=== PATIENT | female | born 1970 | race Caucasian/White ===

== ENCOUNTER 2016-12-20 16:16 | Emergency (ER) | payer OTHER ==
[2016-12-20 17:52] VITALS: BP 147/82
--- NOTE | 2016-12-20 18:46 | UC ---
Skin Complaint HPI - HPI Summary HPI Summary: 46 year old female with tick bite. It was on 2 days ago. Left leg for about 6 hours or so when she noticed at home and removed it immediately. Patient today develop congestion, cough, runny nose . No fever, myalgias or chills. No rash or bulls eye lesion - History of Current Complaint Chief Complaint: UCSkin Time Seen by Provider: 12/20/16 17:56 Stated Complaint: TICK BITE Hx Obtained From: Patient Hx Last Menstrual Period: 3 WKS AGO Aggravating Factor(s): Nothing Alleviating Factor(s): Nothing - Allergy/Home Medications Allergies/Adverse Reactions: Allergies Allergy/AdvReac Type Severity Reaction Status Date / Time No Known Allergies Allergy Verified 12/20/16 17:52 Home Medications: Home Medications Cyanocobalamin [B-12] 1,000 mcg PO DAILY 12/20/16 [History Confirmed 12/20/16] [id number] [Tylenol Sinus Severe 5-325-200 mg] 2 tab PO DAILY PRN 12/20/16 [History Confirmed 12/20/16] Venlafaxine TAB (NF) [Effexor TAB (NF)] 25 mg PO BID 12/20/16 [History Confirmed 12/20/16] Review of Systems Skin: Other - tick bite Is Patient Immunocompromised?: No All Other Systems Reviewed And Are Negative: Yes PMH/Surg Hx/FS Hx/Imm Hx Previously Healthy: Yes - Surgical History Surgical History: Yes Surgery Procedure, Year, and Place: R arm, esure procedure, . LEFT ARM FX REPAIR - Family History Known Family History: Positive: None - Social History Occupation: Employed Full-time Lives: With Family Alcohol Use: Rare Substance Use Type: None Smoking Status (MU): Never Smoked Tobacco Physical Exam Triage Information Reviewed: Yes Appearance: Well-Appearing, No Pain Distress, Well-Nourished Vital Signs: Initial Vital Signs Temp 98.4 F 12/20/16 17:46 Pulse 63 12/20/16 17:46 Resp 18 12/20/16 17:46 BP 147/82 12/20/16 17:46 Pulse Ox 100 12/20/16 17:46 Vital Signs Reviewed: Yes Eye Exam: Normal ENT Exam: Normal Neck exam: Normal Neck: Positive: 1 Respiratory Exam: Normal Cardiovascular Exam: Normal Musculoskeletal Exam: Normal Neurological Exam: Normal Psychological Exam: Normal Skin Exam: Normal Skin: Positive: Other - left medial aspect of the knee proximal aspect with small round red irritation. no bruising. 2x2 mm. no discharge. no EM. No streaking. Course/Dx - Course Course Of Treatment: URI concurrent with recent tick bite. tick only on for about 6 hours. now with URI == no EM, no fever, no concern for lyme, with exposure will treat at this time - Diagnoses Provider Diagnoses: tick bite Discharge - Discharge Plan Condition: Good Disposition: HOME Prescriptions: Doxycycline Hyclate [[id number] [id number]] 100 mg PO ONCE #2 cap Patient Education Materials: Tick Bite (ED) Referrals: Rima Duarte MD [Medical Doctor] - 3 Days
== END 2016-12-20 18:41 | disposition home or self-care (01) ==
LOC: UCCORT 16:16
DX: S80.862A Insect bite (nonvenomous), left lower leg, initial encounter (principal); J06.9 Acute upper respiratory infection, unspecified; W57.XXXA Bitten or stung by nonvenomous insect and other nonvenomous arthropods, initial encounter
CPT/HCPCS: 99202; G0463